=== PATIENT | female | born 1990 | race Caucasian/White ===

== ENCOUNTER 2016-07-23 09:23 | Emergency (ER) | payer OTHER ==
[~2016-07-23] VITALS: Ht 162.6 cm; Wt 63.6 kg
[2016-07-23 09:33] VITALS: BP 139/93; PULSE 93; RESP 14; O2SAT 96
--- NOTE | 2016-07-23 09:39 | ED.REPORT ---
HPI-General Illness Date of Service Jul 23, 2016 ED Provider: Alexi Melendez DO This patient is a 26 year old female with a history of migraine with aura presenting to the ED complaining of lightheadedness and headache that started 2 days ago. Pt. was at Urgent Care earlier and provider sent here for a possible CT scan of head. Pt. states this episode feels different from a migraine. She feels lightheaded every time she stands up but feels fine when she's sitting. Last night while sleeping after taking Ibuprofen, she felt like "passing out while laying flat". She is also experiencing problems with unsteady gait. When she is about to fall, she "feels that she's going to fall on both sides". She admits to headache that feels like a lot of pressure but denies SOB, dysuria, nausea, or leg pain. Pt. is a non-smoker. She is on Imitrex and OCP. Nursing Notes Stated Complaint: DIZZINESS Chief Complaint: General Complaint Nursing Notes Reviewed: Yes Allergies: Coded Allergies: No Known Allergies (Unverified Allergy, Unknown, 07/23/16) Scheduled Meclizine (Bonine) 25 Mg Tab.chew 25 MG PO DAILY General Time Seen by MD: 09:38 Chief Complaint Headache + Lightheadedness Hx Obtained From: Patient Arrived By: Walk-in Sudden in Onset?: No Onset Occurred: 2 days ago Symptom Duration: Since onset Location: : Head Quality: Pressure Radiation: : Does not radiate Severity: Current: Moderate Severity: Maximum: Moderate Recent Healthcare: No recent doctor visit, No recent hospitalization Similar Sx Previous: No Past Medical History Past Medical History Migraines Past Surgical History None reported Smoking History Never Smoker Social History Other Social History: Good social support, Local resident Ambulatory Status Independent Review of Systems Full Review of Systems Respiratory: Denies: Shortness of breath GI: Denies: Nausea Female: Denies: Dysuria Musculoskeletal: Denies: Extremity pain Neurologic: Reports: Dizziness, Headache, Lightheaded Complete sys rev & neg: except as marked. Physical Exam Vital Signs Initial VS: Reviewed ENT: Mucous membranes moist, Conjunctiva normal, No scleral icterus Neck: Supple, Full range of motion Respiratory: Breath sounds normal, Clear to auscultation, No respiratory distress Cardiovascular: Regular rate & rhythm, Heart sounds normal, Intact distal pulses Abdomen / GI: Soft, Non-tender Extremities: Vascular intact, Neuro intact, No swelling, No tenderness Skin: Warm, Dry, No cyanosis Psychiatric: Mood/affect normal, Behavior normal, Normal thought content General/Constitutional: Awake, Alert, No acute distress, Well appearing, Well developed, Cooperative, Not toxic appearing Head / Eyes: Atraumatic, Normocephalic, PERRL, EOMI PERRL ENT: Atraumatic, Airway patent, Mucous membranes moist, Pharynx NL, No peritonsillar abscess Uvula midline Neurologic: Oriented X3, Speech NL, No motor deficits, No sensory deficits, CN II - XII intact, Cerebellar NL, Memory NL Tongue has slight protrusion to right side which is not pronounced Interpretation & Diagnostics Lab Results Interpretation Test 07/23/16 11:17 07/23/16 12:42 White Blood Count 6.3th/mm3 (3.8-10.1) Red Blood Count 4.38mil/mm3 (3.90-5.20) Hemoglobin 13.3g/dL (12.0-15.6) Hematocrit 38.4% (35.0-46.0) Mean Corpuscular Volume 87.7fL (81-100) Mean Corpuscular Hemoglobin 30.4pg (27.0-35.0) Mean Corpuscular Hemoglobin Concent 34.6% (32.0-37.0) Red Cell Distribution Width 12.5% (12.3-15.4) Platelet Count 184bil/L (150-400) Neutrophils (%) (Auto) 68.6% (40-74) Lymphocytes (%) (Auto) 25.8% (14-46) Monocytes (%) (Auto) 4.9% (4-12) Eosinophils (%) (Auto) 0.3% (0-5) Basophils (%) (Auto) 0.2% (0-3) Sodium Level 140mEq/L (134-144) Potassium Level 4.5mEq/L (3.5-5.2) Chloride Level 104mEq/L (97-108) Carbon Dioxide Level 24mmol/L (18-29) Blood Urea Nitrogen 10mg/dL (6-20) Creatinine 0.48mg/dL (0.57-1.00) Estimat Glomerular Filtration Rate 222mL/min (>59) Glucose Level 130mg/dL (60-99) Calcium Level 9.3mg/dL (8.5-10.1) Total Bilirubin 0.2mg/dL (0.0-1.2) Aspartate Amino Transf (AST/SGOT) 12U/L (0-50) Alanine Aminotransferase (ALT/SGPT) 10U/L (0-32) Alkaline Phosphatase 77U/L (25-150) Total Protein 7.1g/dL (6.4-8.4) Albumin 3.9g/dL (3.4-5.0) Hold Lane Top Tube Received (Received) Hold Urine Received (Received) ECG Interpretation ECG Interpretation: SR with a rate of [address] abnormalities Time: 11:28 Interpreted by: ED physician CT Head Interpretation IMPRESSION: 1. No acute intracranial abnormality. Dictated by: Yo Marc M.D. on 07/23/2016 at 10:31 Interpretation / Wet Read by: Interpret - Radiologist Re-Eval/Medical Decision Med Decision/Clinical Course 26-year-old female with a history of migraines with aura presents with 2 days of lightheadedness and headaches different from her usual migraines. She is also having some difficulty with balance and has had to hold onto things to stay upright. Her symptoms resolved when she lays down. Workup today included an EKG and lab work which returned normal. We also looked at a CT of the head which was unremarkable. She was treated with Toradol and meclizine. Her neurologic exam is normal other than it seems her tongue just slightly protrudes to the right side, however her uvula is midline. Initially she felt her symptoms had not improved but when later rechecked and she said she did feel better. I offered her an MRI as they are available in the hospital at this time but she preferred to watch and wait to see what happens with her symptoms. Certainly there is no obvious/overt dangerous symptoms and I think it will be safe to have her follow-up with her doctor next week. She is instructed to return to the ER for symptoms worsen. Source of Hx: Old records Time of Eval: 11:51 Patient Status: Condition improved Re-Evaluation/Progress Note: Rechecked pt. Told pt. that her CT was negative and EKG was normal. Ready for discharge. Pt. understands and agrees with plan. All questions have been addressed. Time of Eval: 12:33 Re-Evaluation/Progress Note: Pt. rechecked. She tried walking but still felt unbalanced and dizzy at first but this improved. I offered her an MRI but she declined. Pt. understands and agrees with plan. All questions have been addressed. Counseled Regarding: Diagnosis, Lab results, Need for follow-up, When/why to return to ED Discharge & Departure Primary Impression: Lightheadedness Additional Impressions: Headache Headache type: unspecified Headache chronicity pattern: unspecified pattern Intractability: not intractable Qualified Code: R51 - Headache Difficulty balancing Disposition: Home Discharge Condition All VS Reviewed: Yes Condition: Stable Patient Instructions: Acute Headache (ED) Additional Instructions: Thank you for contrasting us with your care. Your emergency room evaluation today here has been reassuring. Your CT, lab work, EKG and vital signs have been normal. You can take meclizine daily as needed if you find this helpful for your symptoms. Please return to the ER for new or worsening symptoms. Follow-up with your primary doctor next week. Referrals: Hilda Serrano (PCP) Jairo Attestation Portions of this note were transcribed by Deisi Yu. Dr. Al Jara personally performed the history, physical exam and medical decision- making; I reviewed and confirmed the accuracy of the information in the transcribed note. Signed by: Jairo Rodgers, 07/23/2016 and 1257. copies to: Hilda Serrano Gary R DO Jul 23, 2016 09:39 Lucrecia Mcdaniel [Deisi] Jul 23, 2016 10:15 PUJA YU Jul 23, 2016 12:24 Hilda Serrano (PCP) Jairo Attestation Portions of this note were transcribed by Deisi Yu. Dr. Al Jara personally performed the history, physical exam and medical decision- making; I reviewed and confirmed the accuracy of the information in the transcribed note. Signed by: Jairo Rodgers, 07/23/2016 and 1257. copies to: Hilda Serrano Gary R DO Jul 23, 2016 09:39 Lucrecia Mcdaniel [Deisi] Jul 23, 2016 10:15 PUJA YU Jul 23, 2016 12:24
--- NOTE | 2016-07-23 10:36 | DRSVH ---
PROCEDURE: CT BRAIN WITHOUT CONTRAST ([id number]) INDICATIONS: severe headache on ocp, poor balance TECHNIQUE: Noncontrast 4.5 mm thick angled axial sections acquired from the foramen magnum to the vertex, with c oronal reformats. COMPARISON: None. FINDINGS: Image quality: Excellent. CSF spaces: Basal cisterns are patent. No extra-axial fluid collections. Ventricles are normal in size and shape. Brain: No intracranial hemorrhage, mass, or mass effect. Russell-white matter interface is preserved. Skull and face: Calvarium and visualized facial bones are intact, without suspicious lesions. Sinuses: Visualized sinuses and mastoids are clear. IMPRESSION: 1. No acute intracranial abnormality. Dictated by: Yo Marc M.D. on 07/23/2016 at 10:31 Approved by: Yo Marc M.D. on 07/23/2016 at 10:31
[2016-07-23 11:06] VITALS: BP_SYST 117; BP_SYST 121; BP_SYST 125; BP_DIAS 77; BP_DIAS 83; BP_DIAS 87
[2016-07-23 11:37] LABS: BASOPHILS % (AUTO) 0.2 % (0-3); EOSINOPHILS % (AUTO) 0.3 % (0-5); MONOCYTES % (AUTO) 4.9 % (4-12); Mean Corpuscular Hemoglobin 30.4 pg (27.0-35.0); Mean Corpuscular Volume 87.7 fL (81-100); NEUTROPHILS % (AUTO) 68.6 % (40-74); Platelet Count 184 bil/L (150-400)
[2016-07-23 12:20] VITALS: BP 119/84; PULSE 85; O2SAT 95
[2016-07-23] MEDS ORDERED: MECL-114 PO (12:51)
[2016-07-23 13:11] VITALS: BP 119/84; PULSE 85; RESP 14; O2SAT 95
== END 2016-07-23 13:11 | disposition home or self-care (01) ==
LOC: SED 09:23
DX: R42 Dizziness and giddiness (principal); R51 Headache; R26.81 Unsteadiness on feet; Z86.69 Personal history of other diseases of the nervous system and sense organs